=== PATIENT | female | born 1990 | race Caucasian/White ===

== ENCOUNTER 2018-10-07 07:45 | Inpatient (IN) | payer OTHER ==
[2018-10-07] MEDS ORDERED: CITRIC ACID/SODIUM CITRATE 30 ML UNIT-DOSE CUP PO ONE (08:33)
--- NOTE | 2018-10-07 08:44 | HP ---
Past Medical History - Admission Chief Complaint: RLTCS History of Present Illness: 28yo @ 39wks here for RLTCS No complaints. No VB/LOF. No ctx. 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: Alzheimer's, CVA, Dementia, Migraine, Multiple Sclerosis, Peripheral Neuropathy, Parkinson's, Seizure, Syncope, TIA, Vertigo, Other Cardiovascular: No: AFIB, Aneurysm, Aortic Insufficiency, Aortic Stenosis, CAD, CHF, Deep Vein Thrombosis, HTN, Hyperlipdemia, WI, Mitral Insufficiency, Mitral Stenosis, Murmur, Pulmonary Hypertension, Other Pulmonary: No: Asthma, Bronchitis, Cancer, COPD, O2 Dependent, Pneumonia, Previously Intubated, Pulmonary Embolus, Pulmonary Fibrosis, Sleep Apnea, Other Gastrointestinal: No: Ascites, Cancer, Constipation, Crohn's Disease, Diverticulitis, Diverticulosis, Esophageal Varices, Gastritis, GERD, GI Bleed, Hemorrhoids, Hiatal Hernia, Inflamatory Bowel Disease, Irritable Bowel Disease, Pancreatitis, Peptic Ulcer Disease, Ulcerative Colitis, Other Hepatobiliary: No: Cirrhosis, Cholelithiasis, Cholecystitis, Choledocholithiasis , Hepatitis A, Hepatitis B, Hepatitis C, Other Renal/: No: Renal Failure, Renal Inusuff, BPH, Cancer, Hematuria, Hemodialysis , Neurogenic Bladder, Renal Calculi, UTI, Other Reproductive: No: Ectopic , Endometriosis, Fibroids, PID, Polycystic Ovary Syndrome, Postmenopausal, Other ...: 5 ...Para: 1 ...Spon : 3 ...EDC by Dates: 10/14/18 Heme/Onc: No: Anemia, B12 Deficiency, Bleeding Disorder, Cancer, Current Chemotherapy, Current Radiation Therapy, Hemochromatosis, Hypercoaguable State, Myeloproliferative Synd, Sickle Cell Disease, Sickle Cell Trait, Thrombocytopenia, Other Infectious Disease: No: AIDS, C-Diff, Herpes Zoster, HIV, MRSA, STD's, Tuberculosis, VREF, Other Psych: No: Addictions, Anxiety, Bipolar, Depression, Panic, Psychosis, Schizophrenia, Other Musculoskeletal: No: Bursitis, Chronic low back pain, Hemiparesis, Hemiplegia, Osteoarthritis, Paraplegia, Other - Past Surgical History Hx Myomectomy: No Hx Transabdominal Cerclage: No - Smoking History Smoking history: Never smoked Have you smoked in the past 12 months: No - Alcohol/Substance Use Hx Alcohol Use: No History of Substance Use: reports: None - Social History Usual Living Arrangement: Yes: With Spouse ADL: Independent History of Recent Travel: Yes Home Medications - Allergies Allergies/Adverse Reactions: Allergies Allergy/AdvReac Type Severity Reaction Status Date / Time No Known Allergies Allergy Verified 10/07/18 09:23 - Home Medications Home Medications: Ambulatory Orders Vitamins (Sjr) - 1 tab PO DAILY 07/31/16 Ibuprofen [Motrin -] 600 mg PO QID #28 tablet 08/02/16 Review of Systems - Review of Systems Constitutional: denies: No Symptoms, Chills, Diaphoresis, Fever, Lethargy, Loss of Appetite, Malaise, Night Sweats, Unintentional Wgt. Loss, Weakness, Other Eyes: denies: No Symptoms, Blind Spots, Blurred Vision, Double Vision, Eye Pain , Floaters, Photophobia, Recent Change in Vision, Other HENT: denies: No Symptoms, Difficult Swallowing, Ear Discharge, Ear Pain, Epistaxis, Gingival Bleeding, Hearing Loss, Mouth Swelling, Nasal Congestion, Ocular Prosthesis, Throat Pain, Toothache, Ringing in Ears, Other Neck: denies: No Symptoms, Decreased ROM, Lumps, Pain on Movement, Stiffness, Swollen Glands, Tenderness, Other Cardiovascular: denies: No Symptoms, Chest Pain, Edema, Palpitations, Shortness of Breath, Other Respiratory: denies: No Symptoms, Cough, Exercise Intolerance, Hemoptysis, Orthopnea, PND, Snoring, SOB, SOB on Exertion, Wheezing, Other Gastrointestinal: denies: No Symptoms, Abdominal Pain, Bloating, Constipation, Diarrhea, Dysphagia, Indigestion, Melena, Nausea, Rectal Bleeding, Vomiting, Vomiting Blood, Other Genitourinary: denies: No Symptoms, Burning, Discharge, Dysuria, Flank Pain, Frequency, Hematuria, Incontinence, Lesions, Menses, Pain, Testicular Mass, Testicular Pain, Testicular Swelling, Urgency, Vaginal Bleeding, Other Physical Exam - Maternity Constitutional: Yes: Well Nourished, No Distress, Calm Eyes: Yes: WNL, Conjunctiva Clear, EOM Intact HENT: Yes: WNL, Atraumatic, Normocephalic Neck: Yes: WNL, Supple, Trachea Midline Cardiovascular: Yes: WNL, Regular Rate and Rhythm Breast(s): Yes: WNL - Abdominal Exam/OB Number of Fetuses: Single Presentation: Vertex Contractions: No Monitor Mode: External Category: I Accelerations: Uniform Decelerations: None - Vaginal Exam/OB Vaginal Bleediing: No Amniotic Membrane Status: Intact Presentation: Vertex/Position - Physical Exam Edema: No Problem List - Problems (1) S/P repeat low transverse Code(s): Z98.891 - HISTORY OF UTERINE SCAR FROM PREVIOUS SURGERY Assessment/Plan 28yo @ 39wks here for scheduled RLTCS Admit to L&D NPO, IVFs Ancef SCDs Reassuring FHT Risk of procedure including bleeding, infection and injury to surrounding tissue (bladder, bowel, tubes/ovaries, nerves/arteries/veins) discussed. All questions answered. Consent signed. Ayleen Barclay MD
[2018-10-07] MEDS ORDERED: ceFAZolin 2 GRAM PREMIX BAG IVPB ONE (08:45)
[2018-10-07 09:16] VITALS: BMI 33.0
[2018-10-07] MEDS ORDERED: OXYTOCIN 10 UNITS/ML VIAL ONE (10:12)
[2018-10-07] MEDS ORDERED: OXYTOCIN 20 UNITS in 0.9% NS 20 UNIT/1,000 ML INFUS.BAG IV ONE ×2 (10:12→12:10)
[2018-10-07] MEDS ORDERED: ELECTROLYTE-148 SOLN 1,000 ML IV SCH (10:15)
[2018-10-07] MEDS ORDERED: morphine SULFATE/Preservative Free 0.5 MG/ML (1cc Syringe) ONE (10:32)
[2018-10-07] MEDS ORDERED: ePHEDrine SULFATE 50 MG/1 ML AMPULE ONE ×2 (10:59→11:53)
[2018-10-07] MEDS ORDERED: PHENYLEPHRINE HCL 10 MG/1 ML SINGLE DOSE VIAL ONE (11:13)
[2018-10-07] MEDS ORDERED: KETOROLAC TROMETHAMINE 30 MG/1 ML VIAL ONE (11:13)
[2018-10-07] MEDS ORDERED: ONDANSETRON 4 MG/2 ML VIAL IVPUSH PRN (11:28)
[2018-10-07] MEDS ORDERED: ACETAMINOPHEN 325 MG TABLET (FP) PO PRN (11:38)
[2018-10-07] MEDS ORDERED: BENZOCAINE 20% 57 GM BOTTLE TP PRN (11:38)
[2018-10-07] MEDS ORDERED: BENZOCAINE 28 GM HEMORRHOIDAL OINTMENT TP PRN (11:38)
[2018-10-07] MEDS ORDERED: oxyCODONE HCL 5 MG TABLET PO PRN (11:38)
[2018-10-07] MEDS ORDERED: IBUPROFEN 800 MG/8 ML IJ IVPB PRN (11:38)
[2018-10-07] MEDS ORDERED: METHYLERGONOVINE MALEATE 0.2 MG/1 ML AMP IM PRN (11:38)
[2018-10-07] MEDS ORDERED: WITCH HAZEL 50% (TUCKS) 40 PAD/JAR PAD TP PRN (11:38)
[2018-10-07] MEDS ORDERED: IBUPROFEN 600 MG TABLET (FP) PO PRN (11:38)
--- NOTE | 2018-10-07 11:38 | OP ---
Operative Note - Note: Operative Date: 10/07/18 Pre-Operative Diagnosis: 39week , h/o , desires elective repeat Operation: Repeat Low Transverse Findings: VMI, TIRSO, no nuchal or meconium. Weight pending. Apgars 9/9. Normal tubes and ovaries bilaterally Post-Operative Diagnosis: Same as Pre-op Surgeon: Ayleen Barclay Return To Service Inspector: Jay Salmeron Anesthesia: Spinal Estimated Blood Loss (mls): 600 Drains, Volume Out (mls): 100 (clear urine) Operative Report Dictated: Yes
[2018-10-07] MEDS: OXYTOCIN 20 UNITS in 0.9% NS 20 UNIT/1,000 ML INFUS.BAG IV SCH ×2 (12:30→17:00)
[2018-10-07] MEDS: LACTATED RINGERS SOLUTION 1,000 ML/1,000 ML INFUS.BAG IV SCH (13:54)
[2018-10-07 14:44] LABS: COCAINE, UR NEGATIVE ng/ml (CUTOFF=300); METHADONE, UR NEGATIVE ng/ml (CUTOFF=300); OPIATES, URI NEGATIVE ng/ml (CUTOFF=300); PHENCYCLIDINE,URINE NEGATIVE ng/ml (CUTOFF=25); URINE AMPHETAMINES NEGATIVE ng/ml (CUTOFF=500); URINE BARBITURATES NEGATIVE ng/ml (CUTOFF=200); URINE BENZODIAZEPINES NEGATIVE ng/ml (CUTOFF=200)
--- NOTE | 2018-10-07 20:07 | OP ---
DATE OF OPERATION: 10/07/2018 PREOPERATIVE DIAGNOSIS: A 39-week , history of section, desires elective repeat section. POSTOPERATIVE DIAGNOSIS: A 39-week , history of section, desires elective repeat section. PROCEDURE: Repeat low transverse section. SURGEON: Margarita Barclay M.D. ARCHIVIST POLITICAL HISTORY: Mary Blackwood ANESTHESIA: Spinal INTRAVENOUS FLUIDS: Per anesthesia record ESTIMATED BLOOD LOSS: 600 URINE OUTPUT: 100 mL of clear urine at the end of the procedure FINDINGS: Viable infant, TIRSO position, no nuchal, no meconium, weight pending, Apgars 9 and 9, normal tubes and ovaries bilaterally. COMPLICATIONS: None. CONDITION: Stable to recovery room. DESCRIPTION OF PROCEDURE: After appropriate consents were signed, patient was taken to the operating room. Spinal anesthesia was administered. She was placed in the supine position with the left lateral tilt. Allen catheter had been inserted prior to entry into the operating room. The abdomen was prepped and draped in the normal sterile fashion. Timeout was performed confirming correct patient and procedure. A Pfannenstiel skin incision was then made through the previous Pfannenstiel incision and carried through to the underlying layers until the fascia was nicked in the midline. Fascia was then extended laterally with the Chamberlain scissors. The inferior aspect of the fascia was then grasped, tented upwards, and the rectus muscles dissected off with Chamberlain scissors and blunt dissection. Attention was then paid to the superior aspect which was taken down in a similar fashion. The muscles were in the midline. The peritoneum was entered bluntly. Bladder blade was inserted and an attempt to make a bladder flap was attempted, but secondary to a thin lower uterine segment and adhesions, the bladder flap was not created. Using the scalpel, the lower transverse segment of the uterus was incised, clear amniotic fluid was noted. 's head was delivered without difficulty as were the remaining shoulders and body. The cord was clamped and cut, the infant was handed off to the pediatric staff. The uterus was cleared manually of the placenta and then cleared of all clot and debris. The uterus was exteriorized for better visualization. The hysterotomy was closed in a single layer with 0 Vicryl stitch. The left corner of the hysterotomy was reinforced with a 0 Vicryl. The uterus was then returned to the abdominal cavity after noting both tubes and ovaries being normally bilaterally. Bladder blade was reinserted. The hysterotomy was rechecked and noted to have an area centrally and a hysterotomy with oozing. This was reinforced with a 0 Biosyn. Hemostasis was obtained. The gutters were cleared of all clot and debris. The hysterotomy was checked again and noted to be hemostatic. The bladder blade was removed. The muscle reapproximated with 2-0 chromic. The fascia was closed with 0 Vicryl. Skin was closed with 3-0 Vicryl. Appropriate dressings and bandage were applied. Sponge, lap, needle count was correct x3. Patient did receive 2 g of Ancef at the start of the procedure. She was taken from the operating room to the recovery room in stable condition. MARGARITA BARCLAY MD [id number] MTDD
[2018-10-07] MEDS: FERROUS SO4 325 MG TABLET (FP) PO SCH (21:07)
[2018-10-08] MEDS: ACETAMINOPHEN 325 MG TABLET (FP) PO PRN ×2 (05:56→15:48)
[2018-10-08] MEDS: SIMETHICONE 80 MG TAB.CHEW (FP) PO PRN ×2 (05:56→15:48)
[2018-10-08] MEDS: IBUPROFEN 600 MG TABLET (FP) PO PRN ×2 (05:57→15:46)
[2018-10-08 07:53] LABS: BASO % 0.5 % (0-2.0); HEMATOCRIT 33.1 % (32.4-45.2); HEMOGLOBIN 10.7 GM/dL (10.7-15.3); LYMPH % 10.7 % (8-40); MCH 30.2 pg (25.7-33.7); MCHC 32.4 g/dl (32.0-36.0); MEAN CELL VOLUME 93.3 fl (80-96); MEAN PLT VOLUME 8.6 fl (7.5-11.1); MONO % 6.7 % (3.8-10.2); NEUT % 81.1 % (42.8-82.8); PLATELET COUNT 291 K/MM3 (134-434); RBC 3.55 M/mm3 (3.60-5.2); RDW 14.5 % (11.6-15.6); WHITE BLOOD COUNT 16.1 K/mm3 (4.0-10.0)
[2018-10-08] MEDS: LACTATED RINGERS SOLUTION 1,000 ML/1,000 ML INFUS.BAG IV SCH (08:30)
--- NOTE | 2018-10-08 08:52 | PN ---
Post Progress Note - Subjective Subjective: 28 yo Para 2 status post vaginal delivery seen and evaluated. Doing well Post Day: 1 Type of Delivery: Repeat C/S Vital Signs: Vital Signs Temperature 98.1 F 10/08/18 07:40 Pulse Rate 98 H 10/08/18 07:40 Respiratory Rate 18 10/08/18 08:00 Blood Pressure 95/59 L 10/08/18 07:40 O2 Sat by Pulse Oximetry (%) 98 10/07/18 12:35 Breast Exam: Yes: Soft Uterus: Yes: Fundus Firm Incision: Yes: Dressing dry and intact Abdomen/GI: Yes: Abdomen soft, Tolerating PO Lochia: Yes: Rubra Lochia, amount: Small Extremities: Yes: Calves non-tender Activity: Ambulating Problem List - Problems (1) Status post repeat low transverse section Code(s): Z98.891 - HISTORY OF UTERINE SCAR FROM PREVIOUS SURGERY Assessment/Plan Status post repeat Stable Ambulation Analgesia as needed Continue routine post op care
[2018-10-08] MEDS: PRENATAL VITAMINS W/ FOLIC ACID TABLET (FP) PO SCH (10:28)
[2018-10-08] MEDS: FERROUS SO4 325 MG TABLET (FP) PO SCH ×2 (10:28→21:34)
[2018-10-08] MEDS ORDERED: DIPHTH,PERTUSS(ACELL),TET 0.5 ML DISP.SYRIN IM ONE (14:00)
--- NOTE | 2018-10-08 15:54 | PN ---
Progress Note (short form) - Note Progress Note: Anesthesia postop note 28 y/o F s/p spinal anesthesia for section, duramorph for postop pain management POD#!, vss, aaox3, pain well controlled, sensory motor intact distally No anesthesia complications.
[2018-10-09] MEDS: IBUPROFEN 600 MG TABLET (FP) PO PRN ×2 (03:34→19:50)
[2018-10-09] MEDS: ACETAMINOPHEN 325 MG TABLET (FP) PO PRN ×2 (03:35→19:50)
[2018-10-09] MEDS: SIMETHICONE 80 MG TAB.CHEW (FP) PO PRN ×2 (03:36→19:49)
--- NOTE | 2018-10-09 08:45 | PN ---
Post Progress Note - Subjective Subjective: c/o pain scale 6/10 voiding without difficulty bm done Post Day: 2 Type of Delivery: Repeat C/S Vital Signs: Vital Signs Temperature 98.2 F 10/08/18 22:00 Pulse Rate 99 H 10/08/18 22:00 Respiratory Rate 18 10/08/18 22:00 Blood Pressure 107/64 10/08/18 22:00 O2 Sat by Pulse Oximetry (%) 98 10/07/18 12:35 Breast Exam: Yes: Soft Uterus: Yes: Fundus below umbilicus. No: Fundus Firm Incision: Yes: Sutures intact. No: Redness, Oozing Abdomen/GI: Yes: Abdomen soft, Tender, Passing flatus, Tolerating PO (diet). No : Abdominal Distention Lochia: Yes: Rubra Lochia, amount: Small Extremities: Yes: Calves non-tender Perineum: Yes: Intact Activity: Ambulating - Labs Labs: CBC WBC 16.1 K/mm3 (4.0-10.0) H 10/08/18 06:30 RBC 3.55 M/mm3 (3.60-5.2) L 10/08/18 06:30 Hgb 10.7 GM/dL (10.7-15.3) 10/08/18 06:30 Hct 33.1 % (32.4-45.2) 10/08/18 06:30 MCV 93.3 fl (80-96) 10/08/18 06:30 MCH 30.2 pg (25.7-33.7) 10/08/18 06:30 MCHC 32.4 g/dl (32.0-36.0) 10/08/18 06:30 RDW 14.5 % (11.6-15.6) 10/08/18 06:30 Plt Count 291 K/MM3 (134-434) 10/08/18 06:30 MPV 8.6 fl (7.5-11.1) 10/08/18 06:30 Absolute Neuts (auto) 13.1 K/mm3 (1.5-8.0) H 10/08/18 06:30 Neutrophils % 81.1 % (42.8-82.8) 10/08/18 06:30 Lymphocytes % 10.7 % (8-40) D 10/08/18 06:30 Monocytes % 6.7 % (3.8-10.2) 10/08/18 06:30 Eosinophils % 1.0 % (0-4.5) 10/08/18 06:30 Basophils % 0.5 % (0-2.0) 10/08/18 06:30 Nucleated RBC % 0 % (0-0) 10/08/18 06:30 Problem List - Problems (1) Status post repeat low transverse section Code(s): Z98.891 - HISTORY OF UTERINE SCAR FROM PREVIOUS SURGERY (2) Encounter for visit Code(s): Z39.2 - ENCOUNTER FOR ROUTINE FOLLOW-UP Assessment/Plan stable. plan ct po care
[2018-10-09] MEDS: PRENATAL VITAMINS W/ FOLIC ACID TABLET (FP) PO SCH (09:33)
[2018-10-09] MEDS: FERROUS SO4 325 MG TABLET (FP) PO SCH ×2 (09:33→22:05)
[2018-10-10] MEDS: IBUPROFEN 600 MG TABLET (FP) PO PRN ×2 (08:28→17:12)
[2018-10-10] MEDS: SIMETHICONE 80 MG TAB.CHEW (FP) PO PRN ×2 (08:29→17:11)
[2018-10-10] MEDS: PRENATAL VITAMINS W/ FOLIC ACID TABLET (FP) PO SCH (09:43)
[2018-10-10] MEDS: FERROUS SO4 325 MG TABLET (FP) PO SCH ×2 (09:43→23:22)
[2018-10-10 12:37] LABS: BASO % 0.7 % (0-2.0); EOS % 5.1 % (0-4.5); HEMATOCRIT 33.2 % (32.4-45.2); HEMOGLOBIN 10.7 GM/dL (10.7-15.3); LYMPH % 18.3 % (8-40); MCH 30.2 pg (25.7-33.7); MCHC 32.2 g/dl (32.0-36.0); MEAN CELL VOLUME 93.9 fl (80-96); MEAN PLT VOLUME 7.6 fl (7.5-11.1); MONO % 4.9 % (3.8-10.2); PLATELET COUNT 351 K/MM3 (134-434); RBC 3.54 M/mm3 (3.60-5.2); RDW 14.9 % (11.6-15.6); WHITE BLOOD COUNT 8.6 K/mm3 (4.0-10.0)
--- NOTE | 2018-10-10 13:19 | PN ---
Post Progress Note Type of Delivery: Repeat C/S Vital Signs: Vital Signs Temperature 97.8 F 10/10/18 08:15 Pulse Rate 81 10/10/18 08:15 Respiratory Rate 18 10/10/18 08:15 Blood Pressure 108/62 10/10/18 08:15 O2 Sat by Pulse Oximetry (%) 98 10/07/18 12:35 Uterus: Yes: Fundus Firm Incision: Yes: Dressing dry and intact Abdomen/GI: Yes: Abdomen soft Lochia: Yes: Rubra Lochia, amount: Small Extremities: Yes: Calves non-tender Activity: Ambulating - Labs Labs: CBC WBC 8.6 K/mm3 (4.0-10.0) 10/10/18 12:20 RBC 3.54 M/mm3 (3.60-5.2) L 10/10/18 12:20 Hgb 10.7 GM/dL (10.7-15.3) 10/10/18 12:20 Hct 33.2 % (32.4-45.2) 10/10/18 12:20 MCV 93.9 fl (80-96) 10/10/18 12:20 MCH 30.2 pg (25.7-33.7) 10/10/18 12:20 MCHC 32.2 g/dl (32.0-36.0) 10/10/18 12:20 RDW 14.9 % (11.6-15.6) 10/10/18 12:20 Plt Count 351 K/MM3 (134-434) D 10/10/18 12:20 MPV 7.6 fl (7.5-11.1) D 10/10/18 12:20 Absolute Neuts (auto) 6.1 K/mm3 (1.5-8.0) 10/10/18 12:20 Neutrophils % 71.0 % (42.8-82.8) 10/10/18 12:20 Lymphocytes % 18.3 % (8-40) D 10/10/18 12:20 Monocytes % 4.9 % (3.8-10.2) 10/10/18 12:20 Eosinophils % 5.1 % (0-4.5) H D 10/10/18 12:20 Basophils % 0.7 % (0-2.0) 10/10/18 12:20 Nucleated RBC % 0 % (0-0) 10/10/18 12:20 Problem List - Problems (1) S/P repeat low transverse Code(s): Z98.891 - HISTORY OF UTERINE SCAR FROM PREVIOUS SURGERY Assessment/Plan 28yo s/p Routine PP care Anticipate d/c to home tomorrow Ayleen Barclay MD
--- NOTE | 2018-10-10 13:58 | DS ---
Physical Examination Vital Signs: Vital Signs Temperature 97.8 F 10/10/18 08:15 Pulse Rate 81 10/10/18 08:15 Respiratory Rate 18 10/10/18 08:15 Blood Pressure 108/62 10/10/18 08:15 O2 Sat by Pulse Oximetry (%) 98 10/07/18 12:35 Constitutional: Yes: Well Nourished, No Distress, Calm Eyes: Yes: WNL, Conjunctiva Clear, EOM Intact HENT: Yes: WNL, Atraumatic, Normocephalic Neck: Yes: WNL, Supple, Trachea Midline Cardiovascular: Yes: WNL, Regular Rate and Rhythm Respiratory: Yes: WNL, Regular, CTA Bilaterally Gastrointestinal: Yes: WNL, Normal Bowel Sounds Musculoskeletal: Yes: WNL Extremities: Yes: WNL Edema: No Integumentary: Yes: WNL Neurological: Yes: WNL, Alert, Oriented ...Motor Strength: WNL Psychiatric: Yes: WNL Labs: CBC, BMP 10/10/18 12:20 Discharge Summary Reason For Visit: Current Active Problems Encounter for visit (Acute) S/P repeat low transverse (Acute) Status post repeat low transverse section (Acute) Hospital Course: Patient presented for scheduled RLTCS By POD#3 she had made all milestones She was discharged home in stable condition Condition: Stable - Instructions Disposition: HOME - Home Medications Comprehensive Discharge Medication List: Ambulatory Orders Vitamins (Sjr) - 1 tab PO DAILY 07/31/16 Ibuprofen [Motrin -] 600 mg PO QID #28 tablet 08/02/16
[2018-10-10] MEDS: ACETAMINOPHEN 325 MG TABLET (FP) PO PRN (17:12)
--- NOTE | 2018-10-11 05:42 | PN ---
Progress Note (short form) - Note Progress Note: pod 4 ,s/p c/s doing well, no c/o CBC, BMP 10/10/18 12:20 Last Vital Signs Temp Pulse Resp BP Pulse Ox 98.6 F 88 18 116/72 98 10/10/18 22:00 10/10/18 22:00 10/10/18 22:00 10/10/18 22:00 10/07/18 12:35 abdomen soft, no distension, no cva , incision dry, clean no calf tenderness plan d/c home, follow up [facility] care 1 week instruction given
[2018-10-11] MEDS: FERROUS SO4 325 MG TABLET (FP) PO SCH (10:04)
[2018-10-11] MEDS: PRENATAL VITAMINS W/ FOLIC ACID TABLET (FP) PO SCH (10:04)
[2018-10-11 12:54] VITALS: BP 131/81; PULSE 97; TEMP 98.7
--- NOTE | 2018-10-11 18:03 | PATH ---
Surgical Pathology Report Patient Name: HUBER VIZCAINO [facility]. Rec. 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 TRIVASCULAR CORD. MEMBRANES WITH NO DIAGNOSTIC ABNORMALITIES. Electronically Signed Regina Verduzco M.D. Gross Description The specimen is received fresh labeled placenta and is a 513 gram, 17.0 x 16.0 x 2.5 cm. placenta with attached membranes and umbilical cord. The attached membranes are baer, translucent with focal opacities and insert marginally. The umbilical cord measures 33 cm. in length and averages 1.3 cm. in diameter. The cord inserts eccentrically, 2 cm. to the nearest margin. No true knots or strictures are identified. Cut surface of the umbilical cord reveals 3 vessels. The surface is kelley-blue with minimal fibrin deposition and appropriate caliber vessels. The maternal surface is red-brown with focal defects. Sectioning reveals red-brown, spongy parenchyma. No lesions are identified. Tutorial Laboratory Supervisor sections are submitted in three cassettes as follows: 1- membrane rolls and umbilical cord; 2-3- full thickness sections of placenta. 10/10/2018 saudi10/10/2018
== END 2018-10-11 13:40 | disposition home or self-care (01) | DRG 540 ==
LOC: JLDR 07:45 → J3W 13:48
PROVIDERS: ADMIT Obstetrics & Gynecology; ATTEND Obstetrics & Gynecology
PROC: 10D00Z1 Extraction of Products of Conception, Low, Open Approach (ICD-10-PCS; principal; 2018-10-07)
DX: O34.211 Maternal care for low transverse scar from previous cesarean delivery (principal); Z3A.39 39 weeks gestation of pregnancy; Z37.0 Single live birth
CPT/HCPCS: 36415; 80307; 85025; 88307-TC; 90715